=== PATIENT | male | born 1955 ===

== ENCOUNTER 2018-06-12 09:21 | Inpatient (IN) | payer MEDICARE ==
[~2018-06-12] VITALS: Ht 167.6 cm; Wt 95.3 kg
[~2018-06-12 09:21] MED LIST: CEFT2FRO2 IV; DOXY100T PO; FURO40TA6 PO; TRAZ-136 PO; VANC125C11 PO
[2018-06-12] MEDS ORDERED: SODIUM CHLORIDE FLUSH 10ML SYR IVF ONE (10:00)
[2018-06-12 10:05] LABS: BASOPHILS # (AUTO) 0.05 x10^3/uL (0-0.1); BASOPHILS % (AUTO) 1 % (0-1); EOSINOPHILS # (AUTO) 0.47 x10^3/uL (0-0.4); EOSINOPHILS % (AUTO) 5 % (1-7); LYMPHOCYTES # (AUTO) 2.48 x10^3/uL (1-3.4); LYMPHOCYTES % (AUTO) 24 % (22-44); MD NO; MEAN CORPUSCULAR HEMOGLOBIN 30.7 pg (27.5-34.5); MEAN CORPUSCULAR HGB CONC 33.3 g/dL (33.2-36.2); MEAN CORPUSCULAR VOLUME 92.4 fL (81-97); MONOCYTES # (AUTO) 0.57 x10^3/uL (0.2-0.8); MONOCYTES % (AUTO) 6 % (2-9); NEUTROPHILS # (AUTO) 6.83 x10^3/uL (1.8-6.8); NEUTROPHILS % (AUTO) 66 % (42-75); PLATELET COUNT 242 x10^3/uL (130-400); RED BLOOD COUNT 4.02 x10^6/uL (4.38-5.82); RED CELL DISTRIBUTION WIDTH 14.3 % (9.4-14.8)
[2018-06-12 10:19] LABS: ALANINE AMINOTRANSFERASE 44 U/L (12-78); ANION GAP 7 mmol/L (5-15); CHLORIDE 112 mmol/L (98-107); CREATININE 0.87 mg/dL (0.7-1.3)
[2018-06-12 10:24] LABS: ALKALINE PHOSPHATASE 148 U/L (45-117); BILIRUBIN,TOTAL 0.4 mg/dL (0.2-1.0); TOTAL PROTEIN 7.2 g/dL (6.4-8.2); TROPONIN I < 0.015 ng/mL (0.000-0.045)
[2018-06-12] MEDS ORDERED: FUROSEMIDE 40 MG/4 ML ONE (11:28)
[2018-06-12] MEDS ORDERED: FUROSEMIDE 40 MG/4 ML IV ONE (11:30)
[2018-06-12 12:29] VITALS: BP 146/81
[2018-06-12] MEDS ORDERED: POLYETHYLENE GLYCOL 17 GM PACKET PO PRN (12:30)
[2018-06-12] MEDS: ENOXAPARIN 40 MG/0.4 ML SQ SCH (13:06)
[2018-06-12] MEDS: FUROSEMIDE 40 MG/4 ML IV SCH (17:17)
[2018-06-12 20:45] VITALS: BP 130/71
[2018-06-12] MEDS: SODIUM CHLORIDE FLUSH 10ML SYR IVF SCH (20:45)
[2018-06-13 02:00] VITALS: BP 131/62
[2018-06-13 06:10] LABS: ANION GAP 8 mmol/L (5-15); CALCIUM 8.9 mg/dL (8.5-10.1); CHLORIDE 106 mmol/L (98-107); CREATININE 1.06 mg/dL (0.7-1.3)
[2018-06-13 06:15] LABS: BASOPHILS # (AUTO) 0.03 x10^3/uL (0-0.1); BASOPHILS % (AUTO) 0 % (0-1); EOSINOPHILS # (AUTO) 0.49 x10^3/uL (0-0.4); EOSINOPHILS % (AUTO) 5 % (1-7); LYMPHOCYTES # (AUTO) 3.05 x10^3/uL (1-3.4); LYMPHOCYTES % (AUTO) 32 % (22-44); MD NO; MEAN CORPUSCULAR HEMOGLOBIN 31.1 pg (27.5-34.5); MEAN CORPUSCULAR HGB CONC 33.6 g/dL (33.2-36.2); MEAN CORPUSCULAR VOLUME 92.6 fL (81-97); MEAN PLATELET VOLUME 8.4 fL (7.4-10.4); MONOCYTES # (AUTO) 0.62 x10^3/uL (0.2-0.8); MONOCYTES % (AUTO) 7 % (2-9); NEUTROPHILS # (AUTO) 5.22 x10^3/uL (1.8-6.8); NEUTROPHILS % (AUTO) 56 % (42-75); PLATELET COUNT 247 x10^3/uL (130-400); RED BLOOD COUNT 4.21 x10^6/uL (4.38-5.82); RED CELL DISTRIBUTION WIDTH 14.3 % (9.4-14.8)
[2018-06-13 06:50] VITALS: BP 139/78
[2018-06-13] MEDS ORDERED: POTASSIUM CHLORIDE 20 MEQ TAB.ER.PRT PO ONE (08:30)
[2018-06-13] MEDS: FUROSEMIDE 40 MG/4 ML IV SCH (09:25)
[2018-06-13] MEDS: SODIUM CHLORIDE FLUSH 10ML SYR IVF SCH ×2 (09:25→23:07)
[2018-06-13] MEDS: ERTAPENEM 1 GM in SODIUM CHLORIDE 0.9% 50 ML IV SCH (11:25)
[2018-06-13] MEDS: ENOXAPARIN 40 MG/0.4 ML SQ SCH (11:26)
[2018-06-13 12:15] VITALS: BP 139/79
[2018-06-13 20:40] VITALS: BP 147/70
[2018-06-14 01:31] VITALS: BP 104/65
[2018-06-14] MEDS: SODIUM CHLORIDE FLUSH 10ML SYR IVF SCH (08:17)
[2018-06-14] MEDS: FUROSEMIDE 40 MG/4 ML IV SCH (08:18)
[2018-06-14 08:34] VITALS: BP 126/73
[2018-06-14] MEDS: ENOXAPARIN 40 MG/0.4 ML SQ SCH (10:35)
[2018-06-14] MEDS: ERTAPENEM 1 GM in SODIUM CHLORIDE 0.9% 50 ML IV SCH (10:35)
[2018-06-14] MEDS ORDERED: FURO40TA6 PO (11:27)
[2018-06-14] MEDS ORDERED: POTA20TA14 PO (11:27)
[2018-06-14 13:17] VITALS: BP 119/74
== END 2018-06-14 14:50 | disposition home or self-care (01) | DRG 291 ==
LOC: ED 10:47 → EDIP 11:17 → 4WST 12:25 → DCLOUNGE 06-14 14:23
PROVIDERS: ADMIT Internal Medicine; ATTEND Hospitalist
DX: I11.0 Hypertensive heart disease with heart failure (principal); E43 Unspecified severe protein-calorie malnutrition; J96.01 Acute respiratory failure with hypoxia; I08.0 Rheumatic disorders of both mitral and aortic valves; I50.33 Acute on chronic diastolic (congestive) heart failure; Z68.33 Body mass index [BMI] 33.0-33.9, adult; D64.9 Anemia, unspecified; E66.9 Obesity, unspecified; F17.210 Nicotine dependence, cigarettes, uncomplicated; R73.9 Hyperglycemia, unspecified; F19.10 Other psychoactive substance abuse, uncomplicated; Z89.512 Acquired absence of left leg below knee; Z91.19 Patient's noncompliance with other medical treatment and regimen; Z89.421 Acquired absence of other right toe(s)
CPT/HCPCS: 36415; 71046; 80048; 80053; 82040; 83735; 83880; 84100; 84484; 85025; 93005; 93308; 93321; 93325; 96365; 96374; G0378; J1335; J1650; J1940

== ENCOUNTER 2018-08-25 05:31 | Day surgery (SDC) | payer MEDICARE ==
[~2018-08-25] VITALS: Ht 170.2 cm; Wt 95.5 kg
[~2018-08-25 05:31] MED LIST changes: +POTA20TA14 PO
[2018-08-25 06:10] VITALS: BP 144/71
[2018-08-25] MEDS ORDERED: LOSA25TA6 PO (06:20)
[2018-08-25 06:31] LABS: BASOPHILS # (AUTO) 0.04 x10^3/uL (0-0.1); BASOPHILS % (AUTO) 0 % (0-1); EOSINOPHILS # (AUTO) 0.41 x10^3/uL (0-0.4); EOSINOPHILS % (AUTO) 4 % (1-7); LYMPHOCYTES # (AUTO) 3.04 x10^3/uL (1-3.4); LYMPHOCYTES % (AUTO) 29 % (22-44); MD NO; MEAN CORPUSCULAR HGB CONC 32.7 g/dL (33.2-36.2); MEAN CORPUSCULAR VOLUME 94.8 fL (81-97); MEAN PLATELET VOLUME 8.2 fL (7.4-10.4); MONOCYTES # (AUTO) 0.88 x10^3/uL (0.2-0.8); MONOCYTES % (AUTO) 8 % (2-9); NEUTROPHILS % (AUTO) 58 % (42-75); PLATELET COUNT 293 x10^3/uL (130-400); RED BLOOD COUNT 4.86 x10^6/uL (4.38-5.82)
[2018-08-25 06:42] LABS: ALANINE AMINOTRANSFERASE 33 U/L (12-78); ALBUMIN 3.3 g/dL (3.4-5.0); ANION GAP 8 mmol/L (5-15); CHLORIDE 108 mmol/L (98-107); CREATININE 1.01 mg/dL (0.7-1.3)
[2018-08-25 06:44] LABS: ALKALINE PHOSPHATASE 149 U/L (45-117); BILIRUBIN,TOTAL 0.3 mg/dL (0.2-1.0); TOTAL PROTEIN 7.6 g/dL (6.4-8.2)
[2018-08-25] MEDS ORDERED: MIDAZOLAM 1 MG/ML, 5ML ONE (07:01)
[2018-08-25] MEDS ORDERED: FENTANYL PF 100 MCG/2ML ONE (07:02)
[2018-08-25] MEDS ORDERED: HEPARIN 1,000 UNITS/ML, 10ML ONE (07:02)
[2018-08-25] MEDS ORDERED: NITROGLYCERIN 5 MG/ML, 10ML ONE (07:02)
[2018-08-25] MEDS ORDERED: VERAPAMIL 2.5 MG/ML, 2ML ONE (07:02)
[2018-08-25] MEDS ORDERED: SODIUM CHLORIDE 0.9% 1,000 ML IV SCH (07:46)
[2018-08-25] MEDS ORDERED: FURO40TA6 PO (12:00)
== END 2018-08-25 10:31 | disposition home or self-care (01) ==
LOC: CACL 05:31
PROVIDERS: ATTEND Internal Medicine Cardiovascular Disease
DX: I25.10 Atherosclerotic heart disease of native coronary artery without angina pectoris (principal); I10 Essential (primary) hypertension; I35.1 Nonrheumatic aortic (valve) insufficiency; I34.0 Nonrheumatic mitral (valve) insufficiency; F17.210 Nicotine dependence, cigarettes, uncomplicated; Z79.899 Other long term (current) drug therapy; Z88.5 Allergy status to narcotic agent; Z88.8 Allergy status to other drugs, medicaments and biological substances
CPT/HCPCS: 36415; 80053; 85025; 93458; 99156; C1769; C1894; J1644; J2250; J3010; Q9967

== ENCOUNTER 2018-08-26 03:47 | Inpatient (IN) | payer MEDICARE ==
[2018-08-25 11:40] LABS: MICROSCOPIC AUTO
[2018-08-25 12:19] LABS: INTERNATIONAL NORMALIZED RATIO 0.92 (0.93-1.1); PROTHROMBIN TIME 9.6 Seconds (9.6-11.5)
[~2018-08-26] VITALS: Ht 167.6 cm; Wt 92.1 kg
[~2018-08-26 03:47] MED LIST changes: +LOSA25TA6 PO; -TRAZ-136 PO; +TRAZ50TA66 PO
[2018-08-26] MEDS ORDERED: ALBUMIN HUMAN 5% 500 ML IV PRN (05:30)
[2018-08-26] MEDS ORDERED: INSULIN LISPRO 100 UNITS/ML, PEN SQ-INSULIN SCH (05:30)
[2018-08-26] MEDS ORDERED: CHLORHEXIDINE 15 ML UDC MM SCH (05:30)
[2018-08-26 06:06] VITALS: BP_SYST 155; BP_SYST 158; BP_DIAS 76; BP_DIAS 78
[2018-08-26] MEDS ORDERED: MIDAZOLAM 10MG/2 ML ONE (06:51)
[2018-08-26] MEDS ORDERED: SUFentanil 50 MCG/ML, 5ML ONE (06:51)
[2018-08-26] MEDS ORDERED: REGULAR INSULIN 62.5 UNITS in SODIUM CHLORIDE 0.9% 249.375 ML IV PRN ×2 (07:30→12:35)
[2018-08-26] MEDS ORDERED: VANCOMYCIN 1,500 MG in SODIUM CHLORIDE 0.9% 250 ML IV PRN (07:30)
[2018-08-26] MEDS ORDERED: PHENYLEPHRINE 10 MG in SODIUM CHLORIDE 0.9% 249 ML IV PRN (07:30)
[2018-08-26] MEDS ORDERED: MANNITOL PMX 20% 500 ML IVPB PRN (07:30)
[2018-08-26] MEDS ORDERED: DEXMEDETOMIDINE 200 MCG in SODIUM CHLORIDE 0.9% 48 ML IV SCH (07:30)
[2018-08-26] MEDS ORDERED: EPINEPHRINE 2 MG in SODIUM CHLORIDE 0.9% 248 ML IV SCH (07:30)
[2018-08-26] MEDS ORDERED: POTASSIUM CHLORIDE 80 MEQ, SODIUM BICARBONATE 8.4% 10 MEQ, MAGNESIUM SULFATE 0.5 GM, LI... IV PRN (07:30)
[2018-08-26] MEDS ORDERED: CEFUROXIME 1.5 GM in SODIUM CHLORIDE 0.9% 50 ML IVPB PRN (07:30)
[2018-08-26] MEDS ORDERED: VASOPRESSIN 20 UNIT/ML, 1ML ONE (08:39)
[2018-08-26] MEDS ORDERED: MUPIROCIN OINT 2%, 22GM TP SCH (09:00)
[2018-08-26] MEDS ORDERED: DOCUSATE 100 MG CAPSULE PO SCH (09:00)
[2018-08-26] MEDS ORDERED: SODIUM CHLORIDE FLUSH 10ML SYR IVF SCH (09:00)
[2018-08-26] MEDS ORDERED: PROPOFOL 10 MG/ML, 20ML ONE (11:05)
[2018-08-26] MEDS ORDERED: AMINOCAPROIC ACID 250 MG/ML, 20ML ONE (11:05)
[2018-08-26] MEDS ORDERED: ROCURONIUM 10MG/ML,5ML ONE ×2 (11:05)
[2018-08-26] MEDS ORDERED: PROTAMINE SULFATE 10 MG/ML, 25ML ONE ×2 (11:06)
[2018-08-26] MEDS ORDERED: CALCIUM CHLORIDE 10%, 10ML SYR ONE (11:28)
[2018-08-26] MEDS ORDERED: VASOPRESSIN 50 UNIT in SODIUM CHLORIDE 0.9% 247.5 ML IV PRN (12:35)
[2018-08-26] MEDS ORDERED: NITROGLYCERIN/D5W PMX 250 ML IV PRN (12:35)
[2018-08-26] MEDS ORDERED: SODIUM CHLORIDE 0.9% 1,000 ML IV PRN (12:35)
[2018-08-26] MEDS ORDERED: DOBUTAMINE 250 MG in SODIUM CHLORIDE 0.9% 230 ML IV PRN (12:35)
[2018-08-26] MEDS ORDERED: DEXMEDETOMIDINE 200 MCG in SODIUM CHLORIDE 0.9% 48 ML IV PRN (12:35)
[2018-08-26] MEDS ORDERED: SODIUM BICARB 8.4%, 50ML SYRINGE ONE (12:57)
[2018-08-26] MEDS ORDERED: ALBUMIN HUMAN 25% 50 ML ONE (12:58)
[2018-08-26] MEDS ORDERED: SODIUM BICARBONATE 1 MEQ/ML, 50ML VIAL ONE (12:58)
[2018-08-26] MEDS ORDERED: HEPARIN 1,000 UNITS/ML, 30ML ONE (12:58)
[2018-08-26] MEDS ORDERED: LIDOCAINE 2% 100MG/5ML SYRINGE ONE (12:58)
[2018-08-26] MEDS ORDERED: methylPREDNISolone SOD SUCC 125 MG/2 ML ONE (12:58)
[2018-08-26] MEDS ORDERED: ONDANSETRON 2MG/ML, 2ML IVPush PRN (13:00)
[2018-08-26] MEDS ORDERED: PROCHLORPERAZINE 5 MG/ML, 2ML IVPush PRN (13:00)
[2018-08-26] MEDS ORDERED: CHLORHEXIDINE 15 ML UDC PO SCH (13:00)
[2018-08-26] MEDS ORDERED: DEXTROSE 4 GM TAB.CHEW PO PRN (13:00)
[2018-08-26] MEDS: KSCALE TO 4.5 IV SCH ×2 (13:00→18:25)
[2018-08-26] MEDS ORDERED: BISACODYL 10 MG SUPP PR PRN (13:00)
[2018-08-26] MEDS ORDERED: ACETAMINOPHEN 325 MG TABLET PO PRN (13:00)
[2018-08-26] MEDS ORDERED: FENTANYL PF 100 MCG/2ML IVPush PRN (13:00)
[2018-08-26] MEDS ORDERED: ACETAMINOPHEN 650 MG SUPP PR PRN (13:00)
[2018-08-26] MEDS ORDERED: BISACODYL 5 MG EC TABLET PO PRN (13:00)
[2018-08-26] MEDS ORDERED: DEXTROSE 50%, 50ML SYRINGE IVPush PRN (13:00)
[2018-08-26] MEDS ORDERED: GLUCAGON 1 MG IM PRN (13:00)
[2018-08-26 13:08] LABS: GLUCOSE BY BLOOD GAS ANALYZER 144 mg/dL (70-110); HEMOGLOBIN BY BLOOD GAS ANALYZ 12.8 g/dL (14.0-18.0); POTASSIUM BY BLOOD GAS ANALYZR 4.3 mmol/L (3.6-5.5)
[2018-08-26 13:22] LABS: INTERNATIONAL NORMALIZED RATIO 1.16 (0.93-1.1)
[2018-08-26] MEDS: INSULIN LISPRO 100 UNITS/ML, PEN SQ-INSULIN SCH ×2 (14:24→21:00)
[2018-08-26] MEDS: CEFUROXIME 1.5 GM in SODIUM CHLORIDE 0.9% 50 ML IVPB SCH (14:24)
[2018-08-26] MEDS: MAGNESIUM SULFATE 1 GM in SODIUM CHLORIDE 0.9% 50 ML IVPB SCH (14:24)
[2018-08-26] MEDS ORDERED: ALBUTEROL/IPRATROPIUM 2.5MG/0.5MG, 3 ML ONE (15:21)
[2018-08-26] MEDS: SODIUM BICARB 8.4%, 50ML SYRINGE IV PRN (15:22)
[2018-08-26] MEDS: LACTATED RINGERS 1,000 ML IV PRN (16:15)
[2018-08-26] MEDS: MIDAZOLAM 1 MG/ML, 5ML IVPush PRN ×3 (16:26→23:41)
[2018-08-26] MEDS: VANCOMYCIN 1,400 MG in SODIUM CHLORIDE 0.9% 250 ML IVPB SCH (17:49)
[2018-08-26] MEDS: HYDROcodone/APAP 5/325 TABLET PO PRN (18:18)
[2018-08-26] MEDS: ALBUTEROL/IPRATROPIUM 2.5MG/0.5MG, 3 ML INLINE SCH ×2 (18:42→21:26)
[2018-08-26] MEDS ORDERED: MIDAZOLAM 1 MG/ML, 2ML ONE (18:45)
[2018-08-26] MEDS ORDERED: DEXMEDETOMIDINE 1,000 MCG in SODIUM CHLORIDE 0.9% 240 ML IV PRN (19:00)
[2018-08-26] MEDS: EPINEPHRINE 2 MG in SODIUM CHLORIDE 0.9% 248 ML IV PRN (19:02)
[2018-08-26] MEDS: DOCUSATE 50 MG/5 ML, 10ML UDC PO SCH (21:23)
[2018-08-26] MEDS: SODIUM CHLORIDE FLUSH 10ML SYR IVF SCH (21:24)
[2018-08-26] MEDS: MUPIROCIN OINT 2%, 22GM NAS SCH (21:24)
[2018-08-26] MEDS ORDERED: CALCIUM CHLORIDE 13.6 MEQ in SODIUM CHLORIDE 0.9% 100 ML IV ONE (23:00)
[2018-08-26] MEDS ORDERED: ALBUMIN HUMAN 5% 500 ML IV ONE (23:00)
[2018-08-26] MEDS ORDERED: LACTATED RINGERS 1,000 ML IVBOLUS PRN (23:00)
[2018-08-27] MEDS: EPINEPHRINE 2 MG in SODIUM CHLORIDE 0.9% 248 ML IV PRN ×3 (00:05→16:38)
[2018-08-27] MEDS: SODIUM BICARB 8.4%, 50ML SYRINGE IV PRN (00:49)
[2018-08-27] MEDS: KSCALE TO 4.5 IV SCH ×2 (00:55→06:34)
[2018-08-27] MEDS: CEFUROXIME 1.5 GM in SODIUM CHLORIDE 0.9% 50 ML IVPB SCH (01:21)
[2018-08-27] MEDS: ALBUTEROL/IPRATROPIUM 2.5MG/0.5MG, 3 ML INLINE SCH ×3 (02:54→22:29)
[2018-08-27 05:00] VITALS: BP 106/59
[2018-08-27 05:01] LABS: MEAN CORPUSCULAR HEMOGLOBIN 31.3 pg (27.5-34.5); MEAN CORPUSCULAR HGB CONC 33.1 g/dL (33.2-36.2); MEAN CORPUSCULAR VOLUME 94.4 fL (81-97); MEAN PLATELET VOLUME 8.2 fL (7.4-10.4); PLATELET COUNT 155 x10^3/uL (130-400); RED BLOOD COUNT 3.64 x10^6/uL (4.38-5.82); RED CELL DISTRIBUTION WIDTH 14.9 % (9.4-14.8)
[2018-08-27 05:08] LABS: ALBUMIN 2.8 g/dL (3.4-5.0); ANION GAP 11 mmol/L (5-15); CALCIUM 8.4 mg/dL (8.5-10.1); CHLORIDE 114 mmol/L (98-107)
[2018-08-27 05:10] LABS: CREATININE 1.43 mg/dL (0.7-1.3)
[2018-08-27 05:24] LABS: MD YES
[2018-08-27 05:25] LABS: INTERNATIONAL NORMALIZED RATIO 1.01 (0.93-1.1); PROTHROMBIN TIME 10.5 Seconds (9.6-11.5)
[2018-08-27 05:26] LABS: <PLATELET ESTIMATE> ADEQUATE; <PLT MORPHOLOGY> NORMAL PLT MORPH; <RBC MORPHOLOGY> NORMAL; BAND#(MANUAL) 0.75 x10^3/uL; BANDS%(MANUAL) 4 % (0-7); LYMPH#(MANUAL) 1.13 x10^3/uL (1-3.4); LYMPHS% (MANUAL) 6 % (22-44); MONOS#(MANUAL) 1.69 x10^3/uL (0.3-2.7); MONOS% (MANUAL) 9 % (2-9); SEG#(MANUAL) 15.23 x10^3/uL (1.8-6.8); SEGS% (MANUAL) 81 % (42-75)
[2018-08-27] MEDS: INSULIN LISPRO 100 UNITS/ML, PEN SQ-INSULIN SCH ×4 (06:35→21:00)
[2018-08-27] MEDS: VANCOMYCIN 1,400 MG in SODIUM CHLORIDE 0.9% 250 ML IVPB SCH (06:48)
[2018-08-27] MEDS ORDERED: CALCIUM CHLORIDE 10%, 10ML SYR ONE (07:48)
[2018-08-27] MEDS ORDERED: CALCIUM CHLORIDE 10%, 10ML SYR IVPush ONE (08:00)
[2018-08-27] MEDS: MUPIROCIN OINT 2%, 22GM NAS SCH ×2 (08:45→21:11)
[2018-08-27] MEDS: SODIUM CHLORIDE FLUSH 10ML SYR IVF SCH ×2 (08:45→21:11)
[2018-08-27] MEDS: DOCUSATE 50 MG/5 ML, 10ML UDC PO SCH ×2 (08:47→21:11)
[2018-08-27] MEDS: ASPIRIN 81 MG TABLET EC PO SCH (08:47)
[2018-08-27] MEDS: HYDROcodone/APAP 10/325 MG TABLET PO PRN ×2 (08:49→15:45)
[2018-08-27] MEDS: PHENYLEPHRINE 10 MG in SODIUM CHLORIDE 0.9% 249 ML IV PRN ×2 (10:15→16:38)
[2018-08-27] MEDS: WARFARIN BIOPROSTHETIC VALVE PROTOCOL 2-3 XX SCH (10:25)
[2018-08-27] MEDS: MAGNESIUM SULFATE 1 GM in SODIUM CHLORIDE 0.9% 50 ML IVPB SCH (12:30)
[2018-08-27] MEDS ORDERED: MORPHINE SULFATE 4 MG/ML, 1ML ONE (15:39)
[2018-08-27] MEDS ORDERED: WARFARIN 7.5 MG TABLET PO-COUM ONE (18:00)
[2018-08-28] MEDS: ALBUTEROL/IPRATROPIUM 2.5MG/0.5MG, 3 ML INLINE SCH ×2 (03:22→07:20)
[2018-08-28] MEDS: HYDROcodone/APAP 10/325 MG TABLET PO PRN ×4 (03:29→22:58)
[2018-08-28 04:47] LABS: INTERNATIONAL NORMALIZED RATIO 1.01 (0.93-1.1); PROTHROMBIN TIME 10.5 Seconds (9.6-11.5)
[2018-08-28 04:50] LABS: ANION GAP 4 mmol/L (5-15); CALCIUM 8.1 mg/dL (8.5-10.1); CHLORIDE 112 mmol/L (98-107); CREATININE 0.93 mg/dL (0.7-1.3)
[2018-08-28 05:00] VITALS: BP 103/56
[2018-08-28 05:13] LABS: MEAN CORPUSCULAR HEMOGLOBIN 31.3 pg (27.5-34.5); MEAN CORPUSCULAR HGB CONC 32.9 g/dL (33.2-36.2); MEAN PLATELET VOLUME 8.9 fL (7.4-10.4); PLATELET COUNT 108 x10^3/uL (130-400); RED CELL DISTRIBUTION WIDTH 15.3 % (9.4-14.8)
[2018-08-28 05:45] LABS: BASOPHILS # (AUTO) 0.04 x10^3/uL (0-0.1); BASOPHILS % (AUTO) 0 % (0-1); EOSINOPHILS # (AUTO) 0.07 x10^3/uL (0-0.4); EOSINOPHILS % (AUTO) 0 % (1-7); LYMPHOCYTES # (AUTO) 1.63 x10^3/uL (1-3.4); LYMPHOCYTES % (AUTO) 10 % (22-44); MD SCAN; MONOCYTES % (AUTO) 6 % (2-9); NEUTROPHILS % (AUTO) 83 % (42-75)
[2018-08-28] MEDS: INSULIN LISPRO 100 UNITS/ML, PEN SQ-INSULIN SCH ×4 (07:00→21:45)
[2018-08-28] MEDS: ASPIRIN 81 MG TABLET EC PO SCH (08:51)
[2018-08-28] MEDS: POTASSIUM CHLORIDE 10 MEQ TABLET.ER PO SCH (08:51)
[2018-08-28] MEDS: FUROSEMIDE 20 MG/2 ML IV SCH ×2 (08:52→16:16)
[2018-08-28] MEDS: SODIUM CHLORIDE FLUSH 10ML SYR IVF SCH ×2 (08:52→21:40)
[2018-08-28] MEDS: MUPIROCIN OINT 2%, 22GM NAS SCH ×2 (08:52→21:39)
[2018-08-28] MEDS: DOCUSATE 50 MG/5 ML, 10ML UDC PO SCH (08:52)
[2018-08-28] MEDS: WARFARIN BIOPROSTHETIC VALVE PROTOCOL 2-3 XX SCH (09:00)
[2018-08-28] MEDS: MAGNESIUM SULFATE 1 GM in SODIUM CHLORIDE 0.9% 50 ML IVPB SCH (13:35)
[2018-08-28] MEDS: HYDROcodone/APAP 5/325 TABLET PO PRN (14:22)
[2018-08-28] MEDS ORDERED: WARFARIN 10 MG TABLET PO-COUM ONE (18:00)
[2018-08-29] MEDS: HYDROcodone/APAP 10/325 MG TABLET PO PRN (03:50)
[2018-08-29 05:00] VITALS: BP 148/81
[2018-08-29 05:23] LABS: BASOPHILS # (AUTO) 0.01 x10^3/uL (0-0.1); BASOPHILS % (AUTO) 0 % (0-1); EOSINOPHILS # (AUTO) 0.23 x10^3/uL (0-0.4); EOSINOPHILS % (AUTO) 2 % (1-7); LYMPHOCYTES # (AUTO) 1.53 x10^3/uL (1-3.4); LYMPHOCYTES % (AUTO) 11 % (22-44); MD NO; MEAN CORPUSCULAR HEMOGLOBIN 31.4 pg (27.5-34.5); MEAN CORPUSCULAR VOLUME 94.9 fL (81-97); MEAN PLATELET VOLUME 8.5 fL (7.4-10.4); MONOCYTES % (AUTO) 7 % (2-9); NEUTROPHILS # (AUTO) 11.27 x10^3/uL (1.8-6.8); NEUTROPHILS % (AUTO) 81 % (42-75); PLATELET COUNT 117 x10^3/uL (130-400); RED BLOOD COUNT 3.61 x10^6/uL (4.38-5.82); RED CELL DISTRIBUTION WIDTH 14.6 % (9.4-14.8)
[2018-08-29 05:38] LABS: ANION GAP 7 mmol/L (5-15); CALCIUM 8.1 mg/dL (8.5-10.1); CHLORIDE 101 mmol/L (98-107)
[2018-08-29 05:40] LABS: CREATININE 0.71 mg/dL (0.7-1.3)
[2018-08-29] MEDS: INSULIN LISPRO 100 UNITS/ML, PEN SQ-INSULIN SCH ×4 (07:00→21:00)
[2018-08-29] MEDS: HYDROcodone/APAP 5/325 TABLET PO PRN ×4 (08:06→22:16)
[2018-08-29] MEDS: FUROSEMIDE 20 MG/2 ML IV SCH ×2 (08:06→17:15)
[2018-08-29] MEDS: DOCUSATE 100 MG CAPSULE PO SCH ×2 (08:06→22:11)
[2018-08-29] MEDS: ASPIRIN 81 MG TABLET EC PO SCH (08:06)
[2018-08-29] MEDS: POTASSIUM CHLORIDE 10 MEQ TABLET.ER PO SCH (08:06)
[2018-08-29] MEDS: MUPIROCIN OINT 2%, 22GM NAS SCH ×2 (08:07→22:20)
[2018-08-29] MEDS: SODIUM CHLORIDE FLUSH 10ML SYR IVF SCH ×2 (08:07→22:11)
[2018-08-29 08:09] LABS: INTERNATIONAL NORMALIZED RATIO 1.3 (0.93-1.1); PROTHROMBIN TIME 13.4 Seconds (9.6-11.5)
[2018-08-29] MEDS: WARFARIN BIOPROSTHETIC VALVE PROTOCOL 2-3 XX SCH (08:10)
[2018-08-29 17:45] VITALS: BP 163/96
[2018-08-29] MEDS ORDERED: WARFARIN 10 MG TABLET PO-COUM ONE (18:00)
[2018-08-29 19:37] VITALS: BP 120/80
[2018-08-30 01:36] VITALS: BP 114/75
[2018-08-30] MEDS: HYDROcodone/APAP 5/325 TABLET PO PRN ×4 (05:19→21:12)
[2018-08-30 05:31] LABS: BASOPHILS # (AUTO) 0.06 x10^3/uL (0-0.1); BASOPHILS % (AUTO) 0 % (0-1); EOSINOPHILS # (AUTO) 0.23 x10^3/uL (0-0.4); EOSINOPHILS % (AUTO) 2 % (1-7); LYMPHOCYTES % (AUTO) 16 % (22-44); MD NO; MEAN CORPUSCULAR HEMOGLOBIN 31.3 pg (27.5-34.5); MEAN CORPUSCULAR VOLUME 94.7 fL (81-97); MEAN PLATELET VOLUME 8.9 fL (7.4-10.4); MONOCYTES # (AUTO) 1.07 x10^3/uL (0.2-0.8); MONOCYTES % (AUTO) 8 % (2-9); NEUTROPHILS # (AUTO) 9.74 x10^3/uL (1.8-6.8); NEUTROPHILS % (AUTO) 74 % (42-75); PLATELET COUNT 152 x10^3/uL (130-400); RED BLOOD COUNT 4.08 x10^6/uL (4.38-5.82); RED CELL DISTRIBUTION WIDTH 14.7 % (9.4-14.8)
[2018-08-30 05:35] LABS: INTERNATIONAL NORMALIZED RATIO 2.31 (0.93-1.1); PROTHROMBIN TIME 23.6 Seconds (9.6-11.5)
[2018-08-30 05:47] LABS: ANION GAP 5 mmol/L (5-15); CALCIUM 8.6 mg/dL (8.5-10.1); CHLORIDE 100 mmol/L (98-107); CREATININE 1.01 mg/dL (0.7-1.3)
[2018-08-30 07:48] VITALS: BP 126/85
[2018-08-30] MEDS: WARFARIN BIOPROSTHETIC VALVE PROTOCOL 2-3 XX SCH (09:00)
[2018-08-30] MEDS: FUROSEMIDE 20 MG/2 ML IV SCH ×2 (09:19→17:55)
[2018-08-30] MEDS: DOCUSATE 100 MG CAPSULE PO SCH ×2 (09:19→21:12)
[2018-08-30] MEDS: SODIUM CHLORIDE FLUSH 10ML SYR IVF SCH ×2 (09:20→21:11)
[2018-08-30] MEDS: MUPIROCIN OINT 2%, 22GM NAS SCH ×2 (09:20→21:12)
[2018-08-30] MEDS: ASPIRIN 81 MG TABLET EC PO SCH (09:20)
[2018-08-30] MEDS: POTASSIUM CHLORIDE 10 MEQ TABLET.ER PO SCH (09:20)
[2018-08-30 12:29] VITALS: BP 120/77
[2018-08-30] MEDS ORDERED: WARFARIN 5 MG TABLET PO-COUM ONE (18:00)
[2018-08-30 19:25] VITALS: BP 128/84
[2018-08-31] MEDS: HYDROcodone/APAP 5/325 TABLET PO PRN ×3 (01:17→12:03)
[2018-08-31 01:18] VITALS: BP 122/86
[2018-08-31 05:01] LABS: BASOPHILS # (AUTO) 0.02 x10^3/uL (0-0.1); BASOPHILS % (AUTO) 0 % (0-1); EOSINOPHILS # (AUTO) 0.43 x10^3/uL (0-0.4); EOSINOPHILS % (AUTO) 4 % (1-7); LYMPHOCYTES # (AUTO) 2.22 x10^3/uL (1-3.4); LYMPHOCYTES % (AUTO) 20 % (22-44); MD NO; MEAN CORPUSCULAR HGB CONC 33.1 g/dL (33.2-36.2); MEAN CORPUSCULAR VOLUME 93.7 fL (81-97); MEAN PLATELET VOLUME 8.4 fL (7.4-10.4); MONOCYTES # (AUTO) 1.05 x10^3/uL (0.2-0.8); MONOCYTES % (AUTO) 9 % (2-9); NEUTROPHILS # (AUTO) 7.43 x10^3/uL (1.8-6.8); NEUTROPHILS % (AUTO) 67 % (42-75); PLATELET COUNT 198 x10^3/uL (130-400); RED CELL DISTRIBUTION WIDTH 14.5 % (9.4-14.8)
[2018-08-31 05:04] LABS: INTERNATIONAL NORMALIZED RATIO 2.79 (0.93-1.1); PROTHROMBIN TIME 28.4 Seconds (9.6-11.5)
[2018-08-31 05:08] LABS: CALCIUM 8.7 mg/dL (8.5-10.1); CHLORIDE 100 mmol/L (98-107)
[2018-08-31 05:11] LABS: ANION GAP 7 mmol/L (5-15)
[2018-08-31 07:37] VITALS: BP 117/82
[2018-08-31] MEDS: SODIUM CHLORIDE FLUSH 10ML SYR IVF SCH ×2 (08:00→20:19)
[2018-08-31] MEDS: POTASSIUM CHLORIDE 10 MEQ TABLET.ER PO SCH (08:00)
[2018-08-31] MEDS: ASPIRIN 81 MG TABLET EC PO SCH (08:00)
[2018-08-31] MEDS: DOCUSATE 100 MG CAPSULE PO SCH ×2 (08:00→20:19)
[2018-08-31] MEDS: MUPIROCIN OINT 2%, 22GM NAS SCH (08:00)
[2018-08-31] MEDS: FUROSEMIDE 20 MG/2 ML IV SCH ×2 (08:00→17:20)
[2018-08-31] MEDS: WARFARIN BIOPROSTHETIC VALVE PROTOCOL 2-3 XX SCH (09:00)
[2018-08-31 12:49] VITALS: BP 151/99
[2018-08-31] MEDS ORDERED: WARFARIN 3 MG TABLET PO-COUM ONE (18:00)
[2018-08-31 19:33] VITALS: BP 117/78
[2018-09-01 00:51] VITALS: BP 112/77
[2018-09-01] MEDS: HYDROcodone/APAP 5/325 TABLET PO PRN ×2 (01:36→07:49)
[2018-09-01 06:13] LABS: INTERNATIONAL NORMALIZED RATIO 2.99 (0.93-1.1); PROTHROMBIN TIME 30.4 Seconds (9.6-11.5)
[2018-09-01 06:15] LABS: ANION GAP 6 mmol/L (5-15); CALCIUM 8.9 mg/dL (8.5-10.1); CHLORIDE 101 mmol/L (98-107); CREATININE 1.16 mg/dL (0.7-1.3)
[2018-09-01] MEDS ORDERED: HYDR-3240 PO (07:51)
[2018-09-01] MEDS ORDERED: CLOP75TA52 PO (07:51)
[2018-09-01] MEDS ORDERED: ASPI81TA45 PO (07:51)
[2018-09-01] MEDS: DOCUSATE 100 MG CAPSULE PO SCH (07:58)
[2018-09-01] MEDS: ASPIRIN 81 MG TABLET EC PO SCH (07:58)
[2018-09-01] MEDS: POTASSIUM CHLORIDE 10 MEQ TABLET.ER PO SCH (07:58)
[2018-09-01] MEDS: SODIUM CHLORIDE FLUSH 10ML SYR IVF SCH (07:59)
[2018-09-01] MEDS: FUROSEMIDE 20 MG/2 ML IV SCH (07:59)
[2018-09-01 08:00] VITALS: BP 121/84
[2018-09-01] MEDS ORDERED: WARFARIN 2.5 MG TABLET PO-COUM SCH (18:00)
== END 2018-09-01 10:12 | disposition home or self-care (01) | DRG 219 ==
LOC: 5SO 03:47 → CSU 10:03 → 5SO 08-29 17:37 → DCLOUNGE 09-01 10:00
PROVIDERS: ADMIT Thoracic Surgery (Cardiothoracic Vascular Surgery); ATTEND Thoracic Surgery (Cardiothoracic Vascular Surgery)
PROC: 02UG08Z Supplement Mitral Valve with Zooplastic Tissue, Open Approach (ICD-10-PCS; 2018-08-26)
PROC: 5A1221Z Performance of Cardiac Output, Continuous (ICD-10-PCS; 2018-08-26)
PROC: B246ZZ4 Ultrasonography of Right and Left Heart, Transesophageal (ICD-10-PCS; 2018-08-26)
PROC: 02BG0ZZ Excision of Mitral Valve, Open Approach (ICD-10-PCS; 2018-08-26)
PROC: 5A09357 Assistance with Respiratory Ventilation, Less than 24 Consecutive Hours, Continuous Positive Airway Pressure (ICD-10-PCS; 2018-08-26)
PROC: 02RF08Z Replacement of Aortic Valve with Zooplastic Tissue, Open Approach (ICD-10-PCS; principal; 2018-08-26 08:00)
DX: I08.0 Rheumatic disorders of both mitral and aortic valves (principal); I50.33 Acute on chronic diastolic (congestive) heart failure; E87.2 Acidosis; I11.0 Hypertensive heart disease with heart failure; F15.10 Other stimulant abuse, uncomplicated; F17.200 Nicotine dependence, unspecified, uncomplicated; Z89.512 Acquired absence of left leg below knee; R06.89 Other abnormalities of breathing
CPT/HCPCS: 36415; 36600; 71045; 71046; 74018; 80048; 81001; 82040; 82330; 82800; 82803; 82810; 82947; 82962; 83036; 83735; 84132; 84295; 85014; 85018; 85025; 85049; 85347; 85610; 85730; 86850; 86900; 86923; 87070; 87077; 87081; 87186; 87205; 88305; 88311; 90656; 93005; 93312; 93321; 93325; 93880; 94002; 94003; 94640; C1768; G0378; J0697; J1644; J1815; J2250; J2704; J2720; J3010; J3370; J3475; J3480; J3490; J7620; P9045; P9047; C1751; C1760; C1762; J0171; J1940; J2370; J2930; J7030; J7050; J7120

== ENCOUNTER 2019-01-10 13:48 | Outpatient (CLI) | payer MEDICARE ==
[~2019-01-10 13:48] MED LIST changes: +ASPI81TA45 PO; +CLOP75TA52 PO; +HYDR-3240 PO; +LOSA25TA25 PO; -LOSA25TA6 PO
== END 2019-01-10 23:59 | disposition home or self-care (01) ==
LOC: CFH 13:48
PROVIDERS: ATTEND Internal Medicine Cardiovascular Disease
DX: I35.1 Nonrheumatic aortic (valve) insufficiency (principal); Z95.2 Presence of prosthetic heart valve
CPT/HCPCS: 93306

== ENCOUNTER 2019-11-15 18:38 | Inpatient (IN) | payer MEDICARE, MEDICAID ==
[~2019-11-15] VITALS: Ht 167.6 cm; Wt 97.5 kg
[2019-11-15] MEDS ORDERED: SODIUM CHLORIDE 0.9% 1,000 ML IV ONE (19:14)
[2019-11-15] MEDS ORDERED: CEFTRIAXONE PMX 1GM/50ML 50 ML IVPB ONE (19:30)
[2019-11-15] MEDS ORDERED: methylPREDNISolone SOD SUCC 125 MG/2 ML IVPush ONE (19:30)
[2019-11-15] MEDS ORDERED: ALBUTEROL SULFATE 2.5 MG/3 ML NPPB ONE (19:30)
[2019-11-15] MEDS ORDERED: CEFTRIAXONE PMX 1GM/50ML 50 ML ONE (19:30)
[2019-11-15] MEDS ORDERED: SODIUM CHLORIDE FLUSH 10ML SYR IVF ONE (19:30)
[2019-11-15] MEDS ORDERED: methylPREDNISolone SOD SUCC 125 MG/2 ML ONE (19:30)
--- NOTE | 2019-11-15 19:35 | NUR ---
Pt c/o sob x2 days, monitors applied, RT at bedside giving breathing treatment.
[2019-11-15 19:40] LABS: BASOPHILS % (AUTO) 0 % (0-1); EOSINOPHILS # (AUTO) 0.03 x10^3/uL (0-0.4); EOSINOPHILS % (AUTO) 0 % (1-7); LYMPHOCYTES # (AUTO) 0.35 x10^3/uL (1-3.4); LYMPHOCYTES % (AUTO) 5 % (22-44); MD NO; MEAN CORPUSCULAR HEMOGLOBIN 30.7 pg (27.5-34.5); MEAN CORPUSCULAR HGB CONC 32.8 g/dL (33.2-36.2); MEAN CORPUSCULAR VOLUME 93.4 fL (81-97); MEAN PLATELET VOLUME 8.4 fL (7.4-10.4); MONOCYTES # (AUTO) 0.69 x10^3/uL (0.2-0.8); MONOCYTES % (AUTO) 9 % (2-9); NEUTROPHILS # (AUTO) 6.49 x10^3/uL (1.8-6.8); NEUTROPHILS % (AUTO) 86 % (42-75); PLATELET COUNT 186 x10^3/uL (130-400); RED BLOOD COUNT 4.78 x10^6/uL (4.38-5.82); RED CELL DISTRIBUTION WIDTH 14.6 % (9.4-14.8)
[2019-11-15] MEDS ORDERED: ALBUTEROL SULFATE 2.5 MG/3 ML ONE (19:42)
[2019-11-15 19:51] LABS: ALANINE AMINOTRANSFERASE 31 U/L (12-78); ALBUMIN 3.3 g/dL (3.4-5.0); ANION GAP 8 mmol/L (5-15); CALCIUM 8.3 mg/dL (8.5-10.1); CHLORIDE 104 mmol/L (98-107)
[2019-11-15 19:52] LABS: RAPID INFLUENZA A POSITIVE (Negative); RAPID INFLUENZA B Negative (Negative)
[2019-11-15] MEDS ORDERED: IBUPROFEN 600 MG TABLET ONE (19:54)
[2019-11-15 19:55] LABS: ALKALINE PHOSPHATASE 143 U/L (45-117); BILIRUBIN,TOTAL 0.5 mg/dL (0.2-1.0); TOTAL PROTEIN 7.5 g/dL (6.4-8.2)
[2019-11-15] MEDS ORDERED: DOXYCYCLINE 100 MG in DEXTROSE 5% 250 ML IV ONE (20:00)
[2019-11-15] MEDS ORDERED: IBUPROFEN 200 MG TABLET PO ONE (20:00)
--- NOTE | 2019-11-15 20:05 | NUR ---
Medicated per MAR.
[2019-11-15] MEDS ORDERED: OSELTAMIVIR 75 MG CAPSULE ONE (20:42)
--- NOTE | 2019-11-15 20:47 | NUR ---
PT RESTING IN HOSPITAL BED. AWAITING FOR ROOM FOR ADM. COLD CLOTH PROVIDED. NO OTHER NEEDS AT THIS TIME
[2019-11-15] MEDS ORDERED: OSELTAMIVIR 75 MG CAPSULE PO ONE (21:00)
[2019-11-15 22:27] VITALS: BP 124/78
[2019-11-16] MEDS ORDERED: DOCUSATE 100 MG CAPSULE PO PRN
[2019-11-16] MEDS ORDERED: LIDODERM 5% PATCH TD PRN
[2019-11-16] MEDS ORDERED: MORPHINE SULFATE 4 MG/ML, 1ML IVPush PRN
[2019-11-16] MEDS ORDERED: ONDANSETRON 2MG/ML, 2ML IVPush PRN
[2019-11-16] MEDS ORDERED: TEMAZEPAM 15 MG CAPSULE PO PRN
[2019-11-16] MEDS ORDERED: hydrALAzine 20 MG/ML, 1ML IVPush PRN
[2019-11-16 00:11] VITALS: BP 138/82
[2019-11-16] MEDS: HEPARIN 5,000 UNITS/ML, 1ML SQ SCH ×3 (00:40→18:05)
[2019-11-16 05:39] LABS: BASOPHILS # (AUTO) 0.01 x10^3/uL (0-0.1); BASOPHILS % (AUTO) 0 % (0-1); EOSINOPHILS % (AUTO) 0 % (1-7); LYMPHOCYTES # (AUTO) 0.36 x10^3/uL (1-3.4); LYMPHOCYTES % (AUTO) 6 % (22-44); MD NO; MEAN CORPUSCULAR HEMOGLOBIN 30.6 pg (27.5-34.5); MEAN CORPUSCULAR HGB CONC 32.2 g/dL (33.2-36.2); MEAN CORPUSCULAR VOLUME 94.8 fL (81-97); MEAN PLATELET VOLUME 8.5 fL (7.4-10.4); MONOCYTES # (AUTO) 0.15 x10^3/uL (0.2-0.8); MONOCYTES % (AUTO) 2 % (2-9); NEUTROPHILS # (AUTO) 5.55 x10^3/uL (1.8-6.8); NEUTROPHILS % (AUTO) 92 % (42-75); PLATELET COUNT 179 x10^3/uL (130-400); RED BLOOD COUNT 5.09 x10^6/uL (4.38-5.82)
[2019-11-16 05:47] LABS: ANION GAP 7 mmol/L (5-15); CALCIUM 8.9 mg/dL (8.5-10.1); CHLORIDE 104 mmol/L (98-107)
[2019-11-16 05:48] LABS: CREATININE 1.32 mg/dL (0.7-1.3)
[2019-11-16 08:08] VITALS: BP 139/93
[2019-11-16] MEDS: methylPREDNISolone SOD SUCC 40 MG/ML IVPush SCH ×3 (09:29→20:15)
[2019-11-16] MEDS: OSELTAMIVIR 75 MG CAPSULE PO SCH ×2 (09:29→20:15)
[2019-11-16] MEDS: CEFTRIAXONE PMX 1GM/50ML 50 ML IV SCH ×2 (09:41→22:04)
[2019-11-16] MEDS: DOXYCYCLINE 100 MG in DEXTROSE 5% 250 ML IV SCH ×2 (11:03→23:01)
[2019-11-16] MEDS: FUROSEMIDE 20 MG/2 ML IV SCH ×2 (11:47→18:05)
[2019-11-16 14:00] VITALS: BP 133/85
[2019-11-16] MEDS: ACETAMINOPHEN 325 MG TABLET PO PRN (15:56)
[2019-11-16 19:05] VITALS: BP 139/86
[2019-11-17 01:18] VITALS: BP 131/87
[2019-11-17] MEDS: methylPREDNISolone SOD SUCC 40 MG/ML IVPush SCH ×4 (01:59→20:38)
[2019-11-17] MEDS: HEPARIN 5,000 UNITS/ML, 1ML SQ SCH ×3 (02:00→17:14)
[2019-11-17 05:36] LABS: MEAN CORPUSCULAR HEMOGLOBIN 30.6 pg (27.5-34.5); MEAN CORPUSCULAR HGB CONC 32.2 g/dL (33.2-36.2); MEAN CORPUSCULAR VOLUME 94.9 fL (81-97); MEAN PLATELET VOLUME 8.7 fL (7.4-10.4); PLATELET COUNT 211 x10^3/uL (130-400); RED BLOOD COUNT 5.22 x10^6/uL (4.38-5.82); RED CELL DISTRIBUTION WIDTH 14.6 % (9.4-14.8)
[2019-11-17 05:41] LABS: ANION GAP 7 mmol/L (5-15); CALCIUM 9.1 mg/dL (8.5-10.1); CHLORIDE 108 mmol/L (98-107); CREATININE 1.24 mg/dL (0.7-1.3)
[2019-11-17] MEDS: FUROSEMIDE 20 MG/2 ML IV SCH ×2 (06:31→17:14)
[2019-11-17 07:19] VITALS: BP 139/95
[2019-11-17 07:30] LABS: MD YES
[2019-11-17 07:32] LABS: BAND#(MANUAL) 2.67 x10^3/uL; BANDS%(MANUAL) 16 % (0-7); MONOS#(MANUAL) 0.67 x10^3/uL (0.3-2.7); MONOS% (MANUAL) 4 % (2-9); SEG#(MANUAL) 13.36 x10^3/uL (1.8-6.8); SEGS% (MANUAL) 80 % (42-75)
[2019-11-17 07:33] LABS: <PLATELET ESTIMATE> ADEQUATE; <PLT MORPHOLOGY> NORMAL PLT MORPH; <RBC MORPHOLOGY> NORMAL
[2019-11-17] MEDS: ACETAMINOPHEN 325 MG TABLET PO PRN ×2 (07:51→23:39)
[2019-11-17] MEDS: OSELTAMIVIR 75 MG CAPSULE PO SCH ×2 (07:52→20:38)
[2019-11-17] MEDS: CEFTRIAXONE PMX 1GM/50ML 50 ML IV SCH ×2 (10:07→22:10)
[2019-11-17] MEDS: DOXYCYCLINE 100 MG in DEXTROSE 5% 250 ML IV SCH ×2 (10:43→23:24)
[2019-11-17] MEDS: ALBUTEROL/IPRATROPIUM 2.5MG/0.5MG, 3 ML NPPB PRN (10:50)
[2019-11-17 13:36] VITALS: BP 133/90
[2019-11-17] MEDS: METOPROLOL TARTRATE 25 MG TABLET PO SCH ×2 (17:14→17:16)
[2019-11-17 19:29] VITALS: BP 107/73
[2019-11-18 01:07] VITALS: BP 119/79
[2019-11-18] MEDS: HEPARIN 5,000 UNITS/ML, 1ML SQ SCH ×2 (02:03→09:15)
[2019-11-18] MEDS: methylPREDNISolone SOD SUCC 40 MG/ML IVPush SCH ×2 (02:03→08:58)
[2019-11-18 05:27] LABS: BASOPHILS % (AUTO) 0 % (0-1); EOSINOPHILS % (AUTO) 0 % (1-7); LYMPHOCYTES # (AUTO) 0.91 x10^3/uL (1-3.4); LYMPHOCYTES % (AUTO) 5 % (22-44); MD NO; MEAN CORPUSCULAR HEMOGLOBIN 30.9 pg (27.5-34.5); MEAN CORPUSCULAR HGB CONC 32.3 g/dL (33.2-36.2); MEAN CORPUSCULAR VOLUME 95.8 fL (81-97); MEAN PLATELET VOLUME 8.9 fL (7.4-10.4); MONOCYTES # (AUTO) 0.71 x10^3/uL (0.2-0.8); MONOCYTES % (AUTO) 4 % (2-9); NEUTROPHILS % (AUTO) 91 % (42-75); PLATELET COUNT 222 x10^3/uL (130-400); RED CELL DISTRIBUTION WIDTH 14.4 % (9.4-14.8)
[2019-11-18 05:30] LABS: ANION GAP 7 mmol/L (5-15); CALCIUM 8.7 mg/dL (8.5-10.1); CHLORIDE 107 mmol/L (98-107); CREATININE 1.31 mg/dL (0.7-1.3)
[2019-11-18 05:53] VITALS: BP 134/99
[2019-11-18] MEDS: METOPROLOL TARTRATE 25 MG TABLET PO SCH (05:55)
[2019-11-18 07:20] VITALS: BP 135/88
[2019-11-18] MEDS: OSELTAMIVIR 75 MG CAPSULE PO SCH (09:03)
[2019-11-18] MEDS: ACETAMINOPHEN 325 MG TABLET PO PRN (09:05)
[2019-11-18] MEDS: FUROSEMIDE 20 MG/2 ML IV SCH (09:08)
[2019-11-18] MEDS: CEFTRIAXONE PMX 1GM/50ML 50 ML IV SCH (09:18)
[2019-11-18] MEDS ORDERED: FURO-92 PO (10:14)
[2019-11-18] MEDS ORDERED: CEFD300C37 PO (10:14)
[2019-11-18] MEDS ORDERED: SPIR25TA PO (10:14)
[2019-11-18] MEDS ORDERED: DOXY100T PO (10:14)
[2019-11-18] MEDS ORDERED: OSEL75CA14 PO (10:14)
[2019-11-18] MEDS ORDERED: SIMV20TA PO (10:17)
[2019-11-18] MEDS ORDERED: FLUT1DIS IH (10:21)
[2019-11-18] MEDS ORDERED: TIOT18CA INH (10:21)
[2019-11-18] MEDS ORDERED: PRED5TAB PO (10:21)
[2019-11-18] MEDS: ALBUTEROL/IPRATROPIUM 2.5MG/0.5MG, 3 ML NPPB PRN (10:24)
[2019-11-18] MEDS ORDERED: METO25TA35 PO (10:30)
[2019-11-18] MEDS: DOXYCYCLINE 100 MG in DEXTROSE 5% 250 ML IV SCH (10:36)
== END 2019-11-18 14:47 | disposition home or self-care (01) | DRG 871 ==
LOC: ED 21:33 → 3N 21:48 → 5SO 23:50
PROVIDERS: ADMIT Internal Medicine; ATTEND Internal Medicine
DX: A41.89 Other specified sepsis (principal); J96.00 Acute respiratory failure, unspecified whether with hypoxia or hypercapnia; I50.33 Acute on chronic diastolic (congestive) heart failure; J10.01 Influenza due to other identified influenza virus with the same other identified influenza virus pneumonia; J44.0 Chronic obstructive pulmonary disease with (acute) lower respiratory infection; J44.1 Chronic obstructive pulmonary disease with (acute) exacerbation; F17.213 Nicotine dependence, cigarettes, with withdrawal; I42.7 Cardiomyopathy due to drug and external agent; I11.0 Hypertensive heart disease with heart failure; Z89.431 Acquired absence of right foot; I05.0 Rheumatic mitral stenosis; Z95.2 Presence of prosthetic heart valve; Z89.512 Acquired absence of left leg below knee; Z88.5 Allergy status to narcotic agent; Z71.6 Tobacco abuse counseling
CPT/HCPCS: 36415; 36600; 71045; 80048; 80053; 82803; 83605; 83735; 83880; 84145; 85025; 87040; 87400; 93005; 93306; 94640; 96365; 96367; 96375; G0378; J0696; J1644; J7060; J7613; J7620; J1940; J2920; J2930; J7030

== ENCOUNTER 2019-12-14 08:44 | Day surgery (SDC) | payer MEDICARE, MEDICAID ==
[~2019-12-14] VITALS: Ht 167.6 cm; Wt 93.2 kg
[~2019-12-14 08:44] MED LIST changes: +CEFD300C37 PO; +FLUT1DIS IH; +FURO-92 PO; +METO25TA35 PO; +OSEL75CA14 PO; +PRED5TAB PO; +SIMV20TA PO; +SPIR25TA PO; +TIOT18CA INH
[2019-12-14 09:15] VITALS: BP 151/100
[2019-12-14] MEDS ORDERED: CEFD300C37 PO (09:30)
[2019-12-14] MEDS ORDERED: SODIUM CHLORIDE 0.9% 1,000 ML IV ONE (09:30)
[2019-12-14] MEDS ORDERED: PROPOFOL 10 MG/ML, 20ML ONE (15:18)
== END 2019-12-14 14:08 | disposition home or self-care (01) ==
LOC: CACL 08:44
PROVIDERS: ATTEND Internal Medicine Cardiovascular Disease
DX: I05.0 Rheumatic mitral stenosis (principal); I11.0 Hypertensive heart disease with heart failure; I50.9 Heart failure, unspecified; I25.83 Coronary atherosclerosis due to lipid rich plaque; E78.5 Hyperlipidemia, unspecified; J44.9 Chronic obstructive pulmonary disease, unspecified; Z79.82 Long term (current) use of aspirin; Z79.899 Other long term (current) drug therapy; Z88.5 Allergy status to narcotic agent; Z88.8 Allergy status to other drugs, medicaments and biological substances
CPT/HCPCS: 93312; 93321; 93325; J2704

== ENCOUNTER 2020-07-14 08:01 | Emergency (ER) | payer OTHER, MEDICAID ==
[~2020-07-14] VITALS: Ht 167.6 cm; Wt 98.0 kg
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
[2020-07-14] MEDS ORDERED: KETOROLAC 30 MG/1 ML ONE (09:35)
[2020-07-14] MEDS ORDERED: CYCLOBENZAPRINE 10 MG TABLET ONE (09:37)
--- NOTE | 2020-07-14 09:43 | NUR ---
PATIENT MEDICATED PER eMAR, TAKEN TO IMAGING.
[2020-07-14] MEDS ORDERED: KETOROLAC 30 MG/1 ML IM ONE (10:00)
[2020-07-14] MEDS ORDERED: CYCLOBENZAPRINE 10 MG TABLET PO ONE (10:00)
[2020-07-14 10:32] VITALS: BP 135/84
--- NOTE | 2020-07-14 10:45 | NUR ---
Patient given discharge instructions and prescriptions and they have confirmed that they understand the instructions. All patient belongings gathered by patient. Patient ambulatory with steady gait to discharge desk.
== END 2020-07-14 10:46 | disposition home or self-care (01) ==
LOC: ED 09:36
DX: S39.012A Strain of muscle, fascia and tendon of lower back, initial encounter (principal); V49.49XA Driver injured in collision with other motor vehicles in traffic accident, initial encounter; Y93.89 Activity, other specified; Y92.89 Other specified places as the place of occurrence of the external cause; Y99.8 Other external cause status
CPT/HCPCS: 72110; 96372; 99283; J1885

== ENCOUNTER 2021-03-26 23:42 | Emergency (ER) | payer MEDICAID, OTHER ==
[~2021-03-26] VITALS: Ht 165.1 cm; Wt 90.0 kg
[~2021-03-26 23:42] MED LIST changes: +DEXA4TAB66 PO; +HYDR-2214 PO; -HYDR-3240 PO
[2021-03-26 23:47] VITALS: BP 165/100
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
[2021-03-27] MEDS ORDERED: CEFTRIAXONE 1,000 MG IM ONE (01:00)
[2021-03-27] MEDS ORDERED: CEFTRIAXONE 1,000 MG ONE (01:00)
[2021-03-27] MEDS ORDERED: DOXYCYCLINE 100MG TABLET ONE (01:00)
[2021-03-27] MEDS ORDERED: DOXYCYCLINE 100MG TABLET PO ONE (01:00)
--- NOTE | 2021-03-27 01:32 | NUR ---
Patient given discharge instructions and they have confirmed that they understand the instructions. Patient ambulatory with steady gait.
== END 2021-03-27 01:35 | disposition home or self-care (01) ==
LOC: ED 03-27 00:51
DX: Z20.2 Contact with and (suspected) exposure to infections with a predominantly sexual mode of transmission (principal); I11.0 Hypertensive heart disease with heart failure; I50.9 Heart failure, unspecified; E78.00 Pure hypercholesterolemia, unspecified
CPT/HCPCS: 87491; 87591; 96372; 99283; J0696

== ENCOUNTER 2021-06-03 14:38 | Emergency (ER) | payer MEDICARE, MEDICAID ==
[~2021-06-03] VITALS: Ht 167.6 cm; Wt 90.0 kg
[2021-06-03] MEDS ORDERED: HYDROmorphone 2 MG/ML, 1ML IM ONE (17:00)
--- NOTE | 2021-06-03 17:02 | NUR ---
Report from Angelica ABDALLA.
[2021-06-03] MEDS ORDERED: HYDROmorphone 2 MG/ML, 1ML ONE (17:07)
[2021-06-03 17:20] VITALS: BP 129/79
--- NOTE | 2021-06-03 17:24 | NUR ---
PT MEDICATED PER MAR.
[2021-06-03 17:59] LABS: ANION GAP 5 mmol/L (5-15); CALCIUM 8.9 mg/dL (8.5-10.1); CHLORIDE 107 mmol/L (98-107); CREATININE 0.77 mg/dL (0.7-1.3)
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
== END 2021-06-03 18:59 | disposition home or self-care (01) ==
LOC: ED 14:45
DX: M54.41 Lumbago with sciatica, right side (principal); E87.6 Hypokalemia; M25.551 Pain in right hip; M25.571 Pain in right ankle and joints of right foot; I11.0 Hypertensive heart disease with heart failure; I50.9 Heart failure, unspecified; E78.00 Pure hypercholesterolemia, unspecified; Z88.6 Allergy status to analgesic agent; Z88.5 Allergy status to narcotic agent
CPT/HCPCS: 36415; 72110; 72220; 80048; 96372; 99284; J1170